=== PATIENT | female | born 1930 | race Two or more races ===

== ENCOUNTER → 2017-05-04 | Emergency (ER) | payer OTHER ==
[~2017-05-04] VITALS: Ht 147.3 cm; Wt 45.4 kg
[~2017-05-04] MED LIST: ATACAND32 MG; CEFTIN500 MG PO; EC-NAPROSYN500 MG; INTESTINEX1 CA1 PO; LEVSIN/SL0.125 MG PO; METFORMIN HCL500 MG; NEURONTIN300 MG; PRILOSEC20 MG; TUSSIONEX PENN115 ML PO; ZANTAC150 MG PO; ZOCOR5 MG
== END | disposition home or self-care (01) ==
LOC: ER 09:43
DX: R05 Cough (principal)

== ENCOUNTER → 2017-05-11 | Emergency (ER) | payer OTHER ==
[~2017-05-11] VITALS: Ht 152.4 cm; Wt 44.5 kg
== END | disposition home or self-care (01) ==
LOC: ER 09:38
DX: J22 Unspecified acute lower respiratory infection (principal); J06.9 Acute upper respiratory infection, unspecified; E11.65 Type 2 diabetes mellitus with hyperglycemia; J11.1 Influenza due to unidentified influenza virus with other respiratory manifestations

== ENCOUNTER 2017-08-19 15:57 | Inpatient (IN) | payer OTHER ==
[~2017-08-19] VITALS: Ht 147.3 cm; Wt 49.4 kg
== END 2017-08-25 12:00 | disposition home or self-care (01) | DRG 291 ==
LOC: ER 15:57 → SURG 08-20 10:27 → MEDJ 08-22 14:18
PROC: 4A033R1 Measurement of Arterial Saturation, Peripheral, Percutaneous Approach (ICD-10-PCS; principal; 2017-08-20)
PROC: 3E0F7GC Introduction of Other Therapeutic Substance into Respiratory Tract, Via Natural or Artificial Opening (ICD-10-PCS; 2017-08-20)
PROC: 5A09357 Assistance with Respiratory Ventilation, Less than 24 Consecutive Hours, Continuous Positive Airway Pressure (ICD-10-PCS; 2017-08-20)
DX: I50.23 Acute on chronic systolic (congestive) heart failure (principal); J96.01 Acute respiratory failure with hypoxia; N39.0 Urinary tract infection, site not specified; N18.1 Chronic kidney disease, stage 1; K58.8 Other irritable bowel syndrome; K29.60 Other gastritis without bleeding; J45.998 Other asthma; B96.29 Other Escherichia coli [E. coli] as the cause of diseases classified elsewhere

== ENCOUNTER 2017-11-13 12:43 | Inpatient (IN) | payer OTHER ==
[~2017-11-13] VITALS: Ht 121.9 cm; Wt 45.4 kg
== END 2017-11-17 11:38 | disposition home or self-care (01) | DRG 291 ==
LOC: ER 12:43 → ICU-2 18:52 → SEC-K 11-15 07:30 → MEDJ 11-15 08:53
PROC: 3E0F7GC Introduction of Other Therapeutic Substance into Respiratory Tract, Via Natural or Artificial Opening (ICD-10-PCS; principal; 2017-11-13)
PROC: 4A033R1 Measurement of Arterial Saturation, Peripheral, Percutaneous Approach (ICD-10-PCS; 2017-11-13)
PROC: BW28ZZZ Computerized Tomography (CT Scan) of Head (ICD-10-PCS; 2017-11-13)
DX: I13.0 Hypertensive heart and chronic kidney disease with heart failure and stage 1 through stage 4 chronic kidney disease, or unspecified chronic kidney disease (principal); I50.23 Acute on chronic systolic (congestive) heart failure; N18.1 Chronic kidney disease, stage 1; R09.02 Hypoxemia; J45.998 Other asthma; I25.5 Ischemic cardiomyopathy; E11.22 Type 2 diabetes mellitus with diabetic chronic kidney disease; J44.9 Chronic obstructive pulmonary disease, unspecified; R42 Dizziness and giddiness